=== PATIENT | male | born 1940 | race Caucasian/White ===

== ENCOUNTER → 2019-11-11 | Outpatient (CLI) | payer OTHER, BC | LOC: SJCVC 14:22 | DX: I48.91 Unspecified atrial fibrillation (principal); R94.31 Abnormal electrocardiogram [ECG] [EKG]; I25.810 Atherosclerosis of coronary artery bypass graft(s) without angina pectoris; I11.0 Hypertensive heart disease with heart failure; I50.32 Chronic diastolic (congestive) heart failure; E78.5 Hyperlipidemia, unspecified; I65.23 Occlusion and stenosis of bilateral carotid arteries; Z95.1 Presence of aortocoronary bypass graft; Z95.0 Presence of cardiac pacemaker; Z79.899 Other long term (current) drug therapy; Z87.891 Personal history of nicotine dependence ==

== ENCOUNTER → 2020-02-10 | Outpatient (CLI) | payer OTHER, BC | LOC: SJCVCIMAG 11:23 → SJCVC 11:23 | DX: I70.245 Atherosclerosis of native arteries of left leg with ulceration of other part of foot (principal); L97.521 Non-pressure chronic ulcer of other part of left foot limited to breakdown of skin; M79.604 Pain in right leg; I48.91 Unspecified atrial fibrillation; R94.31 Abnormal electrocardiogram [ECG] [EKG]; I11.0 Hypertensive heart disease with heart failure; I50.32 Chronic diastolic (congestive) heart failure; I48.11 Longstanding persistent atrial fibrillation; E78.5 Hyperlipidemia, unspecified; I25.810 Atherosclerosis of coronary artery bypass graft(s) without angina pectoris; I65.23 Occlusion and stenosis of bilateral carotid arteries; Z79.899 Other long term (current) drug therapy; Z87.891 Personal history of nicotine dependence; Z95.1 Presence of aortocoronary bypass graft ==

== ENCOUNTER → 2020-02-14 | Outpatient (CLI) | payer OTHER, BC ==
[~2020-02-14] MED LIST: COLACE CLEAR50 MG PO; DEMADEX20 MG PO; DILTIAZEM ER240 M2 PO; K-DUR 20 MEQ T20 MEQ PO; LOPRESSOR50 MG PO; NEURONTIN 300M300 M2 PO; NORCO 10-325 T1 EACH PO; OMEPRAZOLE 20 M20 M1 PO; VASOTEC20 MG PO; XARELTO20 MG PO; ZOCOR 10 MG TAB10 M1 PO
== END ==
LOC: SJCVC 13:54
DX: I73.9 Peripheral vascular disease, unspecified (principal); L97.919 Non-pressure chronic ulcer of unspecified part of right lower leg with unspecified severity; L97.929 Non-pressure chronic ulcer of unspecified part of left lower leg with unspecified severity; I48.11 Longstanding persistent atrial fibrillation; I15.9 Secondary hypertension, unspecified; E78.5 Hyperlipidemia, unspecified; Z95.1 Presence of aortocoronary bypass graft; Z82.49 Family history of ischemic heart disease and other diseases of the circulatory system; Z79.899 Other long term (current) drug therapy; Z87.891 Personal history of nicotine dependence

== ENCOUNTER → 2020-02-17 | Outpatient (CLI) | payer OTHER, BC ==
[~2020-02-17] VITALS: Ht 170.2 cm; Wt 82.1 kg
[2020-02-17 09:08] LABS: HEMOGLOBIN 13.2 gm/dL (14.0-18.0); MCH 31.3 pg (26.0-34.0); MCHC 32.9 g/dL (28.0-37.0); MCV 94.9 fL (80.0-100.0); RBC 4.22 mil/uL (4.50-6.00); RDW 14.9 % (10.5-14.5)
[2020-02-17 09:18] LABS: CREATININE 1.6 mg/dL (0.7-1.3); POTASSIUM 4.2 mmol/L (3.5-5.1)
[2020-02-17 09:19] VITALS: BP 114/61
== END | disposition home or self-care (01) ==
LOC: CATH 08:23
PROVIDERS: Nuclear Medicine Nuclear Cardiology
DX: I70.248 Atherosclerosis of native arteries of left leg with ulceration of other part of lower leg (principal); I70.213 Atherosclerosis of native arteries of extremities with intermittent claudication, bilateral legs; I70.1 Atherosclerosis of renal artery; I10 Essential (primary) hypertension; E78.5 Hyperlipidemia, unspecified; I48.91 Unspecified atrial fibrillation; K21.9 Gastro-esophageal reflux disease without esophagitis; Z98.890 Other specified postprocedural states; Z95.1 Presence of aortocoronary bypass graft; Z96.653 Presence of artificial knee joint, bilateral; Z96.643 Presence of artificial hip joint, bilateral; Z96.611 Presence of right artificial shoulder joint; Z87.891 Personal history of nicotine dependence; Z79.01 Long term (current) use of anticoagulants; Z79.899 Other long term (current) drug therapy

== ENCOUNTER → 2020-02-22 | Outpatient (CLI) | payer OTHER, BC | LOC: HYPER 08:22 | DX: L89.613 Pressure ulcer of right heel, stage 3 (principal); L89.893 Pressure ulcer of other site, stage 3; E78.5 Hyperlipidemia, unspecified; I25.10 Atherosclerotic heart disease of native coronary artery without angina pectoris; I10 Essential (primary) hypertension; I73.9 Peripheral vascular disease, unspecified; I48.91 Unspecified atrial fibrillation; K21.9 Gastro-esophageal reflux disease without esophagitis; Z87.891 Personal history of nicotine dependence; Z95.1 Presence of aortocoronary bypass graft; Z95.828 Presence of other vascular implants and grafts ==

== ENCOUNTER → 2020-03-07 | Outpatient (CLI) | payer OTHER, BC | LOC: HYPER 12:59 | DX: L89.613 Pressure ulcer of right heel, stage 3 (principal); L89.893 Pressure ulcer of other site, stage 3; L84 Corns and callosities; E78.5 Hyperlipidemia, unspecified; I10 Essential (primary) hypertension; I73.9 Peripheral vascular disease, unspecified; I48.91 Unspecified atrial fibrillation; I25.10 Atherosclerotic heart disease of native coronary artery without angina pectoris; K21.9 Gastro-esophageal reflux disease without esophagitis; Z87.891 Personal history of nicotine dependence; Z95.1 Presence of aortocoronary bypass graft; Z95.828 Presence of other vascular implants and grafts ==

== ENCOUNTER → 2020-03-21 | Outpatient (CLI) | payer OTHER, BC | LOC: HYPER 13:05 | PROVIDERS: ATTEND Emergency Medicine | DX: L89.613 Pressure ulcer of right heel, stage 3 (principal); L89.893 Pressure ulcer of other site, stage 3; L84 Corns and callosities; E78.5 Hyperlipidemia, unspecified; I25.10 Atherosclerotic heart disease of native coronary artery without angina pectoris; I10 Essential (primary) hypertension; I73.9 Peripheral vascular disease, unspecified; I48.91 Unspecified atrial fibrillation; K21.9 Gastro-esophageal reflux disease without esophagitis; Z87.891 Personal history of nicotine dependence; Z95.1 Presence of aortocoronary bypass graft; Z95.828 Presence of other vascular implants and grafts ==

== ENCOUNTER → 2020-04-04 | Outpatient (CLI) | payer OTHER, BC | LOC: HYPER 07:40 | PROVIDERS: ATTEND Emergency Medicine | DX: L89.613 Pressure ulcer of right heel, stage 3 (principal); L89.893 Pressure ulcer of other site, stage 3; S90.425D Blister (nonthermal), left lesser toe(s), subsequent encounter; E78.5 Hyperlipidemia, unspecified; I25.10 Atherosclerotic heart disease of native coronary artery without angina pectoris; I10 Essential (primary) hypertension; I73.9 Peripheral vascular disease, unspecified; I48.91 Unspecified atrial fibrillation; K21.9 Gastro-esophageal reflux disease without esophagitis; Z87.891 Personal history of nicotine dependence; Z95.1 Presence of aortocoronary bypass graft; Z95.828 Presence of other vascular implants and grafts; X58.XXXD Exposure to other specified factors, subsequent encounter ==

== ENCOUNTER → 2020-04-11 | Outpatient (CLI) | payer OTHER, BC | LOC: HYPER 10:59 | PROVIDERS: ATTEND Emergency Medicine Emergency Medical Services | DX: L89.613 Pressure ulcer of right heel, stage 3 (principal); L84 Corns and callosities; E78.5 Hyperlipidemia, unspecified; I25.10 Atherosclerotic heart disease of native coronary artery without angina pectoris; I10 Essential (primary) hypertension; I73.89 Other specified peripheral vascular diseases; I48.91 Unspecified atrial fibrillation; K21.9 Gastro-esophageal reflux disease without esophagitis; Z87.891 Personal history of nicotine dependence; Z95.1 Presence of aortocoronary bypass graft; Z95.828 Presence of other vascular implants and grafts ==

== ENCOUNTER → 2020-04-18 | Outpatient (CLI) | payer OTHER, BC | LOC: HYPER 14:22 | PROVIDERS: ATTEND Emergency Medicine | DX: L89.613 Pressure ulcer of right heel, stage 3 (principal); L84 Corns and callosities; E78.5 Hyperlipidemia, unspecified; I25.10 Atherosclerotic heart disease of native coronary artery without angina pectoris; I10 Essential (primary) hypertension; I73.89 Other specified peripheral vascular diseases; I48.91 Unspecified atrial fibrillation; K21.9 Gastro-esophageal reflux disease without esophagitis; Z87.891 Personal history of nicotine dependence; Z95.1 Presence of aortocoronary bypass graft; Z95.828 Presence of other vascular implants and grafts ==

== ENCOUNTER → 2020-04-25 | Outpatient (CLI) | payer OTHER, BC | LOC: HYPER 11:57 | PROVIDERS: ATTEND Emergency Medicine | DX: L89.613 Pressure ulcer of right heel, stage 3 (principal); L84 Corns and callosities; E78.5 Hyperlipidemia, unspecified; I25.10 Atherosclerotic heart disease of native coronary artery without angina pectoris; I10 Essential (primary) hypertension; I73.89 Other specified peripheral vascular diseases; I48.91 Unspecified atrial fibrillation; K21.9 Gastro-esophageal reflux disease without esophagitis; Z87.891 Personal history of nicotine dependence; Z95.1 Presence of aortocoronary bypass graft; Z95.828 Presence of other vascular implants and grafts ==

== ENCOUNTER → 2020-05-02 | Outpatient (CLI) | payer OTHER, BC | LOC: HYPER 10:21 | PROVIDERS: ATTEND Emergency Medicine | DX: L89.613 Pressure ulcer of right heel, stage 3 (principal); L89.893 Pressure ulcer of other site, stage 3; I25.10 Atherosclerotic heart disease of native coronary artery without angina pectoris; I73.89 Other specified peripheral vascular diseases; R60.0 Localized edema; K21.9 Gastro-esophageal reflux disease without esophagitis; E78.5 Hyperlipidemia, unspecified; I48.91 Unspecified atrial fibrillation; Z95.1 Presence of aortocoronary bypass graft; Z87.891 Personal history of nicotine dependence ==

== ENCOUNTER → 2020-05-16 | Outpatient (CLI) | payer OTHER, BC | LOC: HYPER 07:19 | PROVIDERS: ATTEND Emergency Medicine | DX: L89.613 Pressure ulcer of right heel, stage 3 (principal); L89.893 Pressure ulcer of other site, stage 3; I25.10 Atherosclerotic heart disease of native coronary artery without angina pectoris; I73.89 Other specified peripheral vascular diseases; R60.0 Localized edema; I10 Essential (primary) hypertension; K21.9 Gastro-esophageal reflux disease without esophagitis; E78.5 Hyperlipidemia, unspecified; I48.91 Unspecified atrial fibrillation; Z95.1 Presence of aortocoronary bypass graft; Z87.891 Personal history of nicotine dependence ==

== ENCOUNTER → 2020-05-30 | Outpatient (CLI) | payer OTHER, BC | LOC: HYPER 08:14 | PROVIDERS: ATTEND Emergency Medicine | DX: L89.613 Pressure ulcer of right heel, stage 3 (principal); L84 Corns and callosities; R60.0 Localized edema; E78.5 Hyperlipidemia, unspecified; I25.10 Atherosclerotic heart disease of native coronary artery without angina pectoris; I73.89 Other specified peripheral vascular diseases; I10 Essential (primary) hypertension; I48.91 Unspecified atrial fibrillation; K21.9 Gastro-esophageal reflux disease without esophagitis; Z87.891 Personal history of nicotine dependence; Z95.1 Presence of aortocoronary bypass graft; Z95.828 Presence of other vascular implants and grafts ==

== ENCOUNTER → 2020-06-12 | Outpatient (CLI) | payer OTHER, BC | LOC: SJCVCIMAG 12:41 | PROVIDERS: ATTEND Nuclear Medicine Nuclear Cardiology | DX: I65.23 Occlusion and stenosis of bilateral carotid arteries (principal); R94.31 Abnormal electrocardiogram [ECG] [EKG]; I73.9 Peripheral vascular disease, unspecified; I48.11 Longstanding persistent atrial fibrillation; I25.810 Atherosclerosis of coronary artery bypass graft(s) without angina pectoris; I11.0 Hypertensive heart disease with heart failure; I50.32 Chronic diastolic (congestive) heart failure; E78.00 Pure hypercholesterolemia, unspecified; Z95.1 Presence of aortocoronary bypass graft; Z95.820 Peripheral vascular angioplasty status with implants and grafts; Z79.899 Other long term (current) drug therapy; Z87.891 Personal history of nicotine dependence ==

== ENCOUNTER → 2020-06-20 | Outpatient (CLI) | payer OTHER, BC | LOC: HYPER 08:20 | PROVIDERS: ATTEND Emergency Medicine | DX: L89.613 Pressure ulcer of right heel, stage 3 (principal); L84 Corns and callosities; R60.0 Localized edema; E78.5 Hyperlipidemia, unspecified; I25.10 Atherosclerotic heart disease of native coronary artery without angina pectoris; I10 Essential (primary) hypertension; I73.89 Other specified peripheral vascular diseases; I48.91 Unspecified atrial fibrillation; K21.9 Gastro-esophageal reflux disease without esophagitis; Z87.891 Personal history of nicotine dependence; Z95.1 Presence of aortocoronary bypass graft; Z95.828 Presence of other vascular implants and grafts ==

== ENCOUNTER → 2020-09-05 | Outpatient (CLI) | payer OTHER, BC | LOC: SJCVC 10:58 | PROVIDERS: ATTEND Internal Medicine | DX: I25.10 Atherosclerotic heart disease of native coronary artery without angina pectoris (principal); R94.31 Abnormal electrocardiogram [ECG] [EKG]; I48.21 Permanent atrial fibrillation; I11.0 Hypertensive heart disease with heart failure; I50.32 Chronic diastolic (congestive) heart failure; E78.5 Hyperlipidemia, unspecified; I73.9 Peripheral vascular disease, unspecified; Z95.1 Presence of aortocoronary bypass graft; Z79.899 Other long term (current) drug therapy; Z87.891 Personal history of nicotine dependence ==

== ENCOUNTER → 2020-10-16 | Outpatient (CLI) | payer OTHER, BC | LOC: SJCVC 13:44 | PROVIDERS: ATTEND Internal Medicine | DX: R94.31 Abnormal electrocardiogram [ECG] [EKG] (principal); I25.10 Atherosclerotic heart disease of native coronary artery without angina pectoris; I11.0 Hypertensive heart disease with heart failure; I50.32 Chronic diastolic (congestive) heart failure; I48.21 Permanent atrial fibrillation; E78.5 Hyperlipidemia, unspecified; I73.9 Peripheral vascular disease, unspecified; Z95.1 Presence of aortocoronary bypass graft; Z87.891 Personal history of nicotine dependence; Z79.899 Other long term (current) drug therapy; Z88.0 Allergy status to penicillin; Z88.1 Allergy status to other antibiotic agents ==

== ENCOUNTER 2020-12-01 00:40 | Inpatient (IN) | payer OTHER, BC ==
[2020-12-01] VITALS (10 sets, daily range): BP systolic 97–120; BP diastolic 54–83
[~2020-12-01] VITALS: Ht 172.7 cm; Wt 89.9 kg
--- NOTE | ~2020-12-01 | EMS ---
[address] [address] EMS Patient Care Report Name: MINA TRINH Room #: REG JOSE Botello#: [id number] Admission: 12/01/20 Attend Phys: Discharge: Date of : 38 Report #: [id number] THIS REPORT FOR: //name// Report Transmitted: 12/01/2020 00:12 EMS Care Summary [facility] MED-ACT Incident [id number] @ 12/01/2020 00:02 Incident Location [address] [place] [address] Patient MINA TRINH Male, 80 Years 1940 Patient Address [address] [place] [address] Patient History Atrial Fibrillation, Patient Allergies Penicillin allergy,Levaquin, Patient Medications Atorvastatin, Gabapentin, Torsemide, Atrovent, Ondansetron, Metoprolol, Docusate Sodium, Hydrocodone, Acetaminophen, Chief Complaint A FIB Disposition Transported No Lights/[place] Dispatch Reason Heart Problems/AICD Transported To [facility] Narrative [id number] dispatched to a rehab hospital for a C1 heart problem. Pt was found laying in bed with staff present and S47 on scene. [facility] [address] [place] [address] EMS Patient Care Report Name: MINA TRINH Room #: REG JOSE Botello#: [id number] Admission: 12/01/20 Attend Phys: Discharge: Date of : 38 Report #: [id number] Staff stated that they called 911 because the pt was in AFIB. Pt currently has no complaints and has a hx of AFIB. Staff stated that they gave the pt his prescribed metoprolol at 2000 this evening. Since then the pt's heart rate has been in the 130's. Staff stated that they were unable to give the pt any more metoprolol. Pt denied any chest pain, difficulty breathing, N/V, dizziness or any other complaints at this time. Pt stated that he has had a persistent cough with positive phlegm production. Pt tested positive for COVID last September but stated that the never had any symptoms. Pt is currently in the rehab hospital after having a medication error in August last year. He stated that he lost all his muscle tone and is having to re learn how to walk. Pt [facility] through out transport and his condition did not change. Pt was transported non emergent to [facility] per his request. Initial Vitals @00:37P: 132,SpO2: 97, @00:27P: 137,SpO2: 96,CA Suspected: false @PTAP: 125,R: 14,BP: 112/75,Pain: 0/10,GCS: 15,SpO2: 95,Revised Trauma: 12,CA Suspected: false @00:38P: 124,R: 16,BP: 132/69,GCS: 15,SpO2: 96,Revised Trauma: 12,CA Suspected: false @00:25P: 127,R: 16,BP: 110/73,Pain: 0/10,GCS: 15,Temp: 98.7F,SpO2: 94,Revised Trauma: 12,CA Suspected: false Assessments @00:27MENTAL:Person Oriented,Place Oriented,Time Oriented,Event Oriented,SKIN:HEENT:Eyes: No Abnormalities,LUNG SOUNDS:ABDOMEN:PELVIS//GI:EXTREMITIES:Right Leg: Edema,Left Leg: Edema,Left Arm: Abnormal Pulse,PULSE:Radial: 2+ Normal,NEURO: Impression Cardiac arrhythmia/dysrhythmia Procedures @PTASurgical Mask on PatientResponse: Unchanged@00:2712-Lead ECGResponse: UnchangedSucceeded Timeline AERIAL TRAM OPERATOR,Surgical Mask on Patient,Response: Unchanged AERIAL TRAM OPERATOR,BP: 112/75 M,PULSE: 125,RR: 14 R,SPO2: 95 Ox,ETCO2: ,BG: ,PAIN: 0,GCS: 15, 00:01,Call Received 00:01,Psap Call 00:02,Dispatched 00:04,En Route 00:10,On Scene 00:12,At Patient [address] [address] EMS Patient Care Report Name: MINA TRINH Room #: REG [facility].#: [id number] Admission: 12/01/20 Attend Phys: Discharge: Date of : 38 Report #: [id number] 00:25,BP: 110/73 M,PULSE: 127,RR: 16 R,SPO2: 94 Ox,ETCO2: ,BG: ,PAIN: 0,GCS: 15, 00:27,12-Lead ECG,Response: UnchangedSucceeded, 00:27,BP: / M,PULSE: 137,RR: R,SPO2: 96 Ox,ETCO2: ,BG: ,PAIN: ,GCS: , 00:30,Depart Scene 00:37,At Destination 00:37,BP: / M,PULSE: 132,RR: R,SPO2: 97 Ox,ETCO2: ,BG: ,PAIN: ,GCS: , 00:38,BP: 132/69 M,PULSE: 124,RR: 16 R,SPO2: 96 Ox,ETCO2: ,BG: ,PAIN: ,GCS: 15, 01:01,Call Closed Disclaimer v1.1 Copyright 2020 [employer] This EMS Care Summary contains data elements from the applicable legal record (which may be displayed differently). It is designed to provide pertinent information for the following purposes: continuity of care, clinical quality, and state data reporting. The complete legal record is available to ED staff and administrators of the receiving hospital in [employer] Patient Tracker. All data is provided "as is."
[2020-12-01 01:32] LABS: ABSOLUTE NEUTROPHILS 3.8 thou/uL (1.4-8.2); BASOPHILS 0.9 % (0.0-2.0); EOSINOPHILS 1.6 % (0.0-3.0); HEMATOCRIT 32.3 % (42.0-52.0); HEMOGLOBIN 9.5 gm/dL (14.0-18.0); LYMPHOCYTES 20.2 % (24.0-44.0); MCH 24.4 pg (26.0-34.0); MCHC 29.3 g/dL (28.0-37.0); MCV 83.1 fL (80.0-100.0); MONOCYTES 14.2 % (1.0-8.0); PLATELET COUNT 120 thou/uL (150-400); POLYS 63.1 % (36.0-66.0); RBC 3.89 mil/uL (4.50-6.00); RDW 18.9 % (10.5-14.5)
[2020-12-01] MEDS ORDERED: ACETAMINOPHEN PO (01:36)
[2020-12-01 01:38] LABS: ANION GAP 6 mmol/L (7-16); BUN 77 mg/dL (7-18); CALCIUM 9.1 mg/dL (8.5-10.1); CHLORIDE 98 mmol/L (98-107); CO2 35 mmol/L (21-32); CREATININE 1.8 mg/dL (0.7-1.3); GLUCOSE 128 mg/dL (74-106); POTASSIUM 4.3 mmol/L (3.5-5.1); SODIUM 139 mmol/L (136-145)
[2020-12-01 01:38] LABS: URINE BILIRUBIN NEGATIVE (Negative); URINE BLOOD NEGATIVE (Negative); URINE CLARITY CLEAR; URINE COLOR YELLOW; URINE GLUCOSE-RANDOM* NEGATIVE (Negative); URINE KETONES NEGATIVE (Negative); URINE LEUKOCYTES-REFLEX NEGATIVE (Negative); URINE NITRITE-REFLEX NEGATIVE (Negative); URINE PROTEIN (DIPSTICK) NEGATIVE (Negative); URINE UROBILINOGEN 0.2 E.U./dl (0.2-1.0)
[2020-12-01] MEDS ORDERED: PROVENTIL HFA6.7 G1 INH (01:38)
[2020-12-01] MEDS ORDERED: LIPITOR10 MG PO (01:38)
[2020-12-01] MEDS ORDERED: BISACODYL10 MG RECTAL (01:39)
[2020-12-01] MEDS ORDERED: CORRECTOL5 M1 PO ×2 (01:40→01:42)
[2020-12-01] MEDS ORDERED: GUAFENESIN PO (01:44)
[2020-12-01] MEDS ORDERED: GUAIFENESIN-DM10 ML PO ×2 (01:47→02:05)
[2020-12-01 01:48] LABS: ALBUMIN 3.5 g/dL (3.4-5.0); MAGNESIUM 2.5 mg/dL (1.8-2.4); SGOT 23 U/L (15-37); SGPT 11 U/L (30-65); TOTAL BILIRUBIN 0.8 mg/dL (0.2-1.0); TOTAL PROTEIN 6.2 g/dL (6.4-8.2); TROPONIN-I <0.06 ng/mL (<0.06)
[2020-12-01] MEDS ORDERED: MUCUS RELIEF600 M1 PO (02:04)
[2020-12-01] MEDS ORDERED: HYDROCODONE-AP1 EA11 PO (02:05)
[2020-12-01] MEDS ORDERED: PROTONIX40 M2 PO (02:06)
[2020-12-01] MEDS ORDERED: POTASSIUM20 PO (02:07)
[2020-12-01] MEDS ORDERED: SALINE MIST44 ML NASAL (02:08)
[2020-12-01] MEDS ORDERED: XARELTO15 MG PO (02:08)
[2020-12-01] MEDS ORDERED: TAMSULOSIN HCL0.4 MG PO (02:09)
[2020-12-01] MEDS ORDERED: SALINE NASAL SP88 ML NASAL (02:09)
[2020-12-01] MEDS ORDERED: SSD CREAM 1% 5050 GM TOP (02:11)
[2020-12-01] MEDS ORDERED: ONDANSETRON HCL4 M3 PO (02:12)
[2020-12-01] MEDS ORDERED: DEMADEX20 MG PO (02:17)
--- NOTE | 2020-12-01 10:55 | EKG ---
[place] [address] [facility] [place] [address] ELECTROCARDIOGRAM REPORT Name: MINA TRINH Room #: 354-P ADM IN M.R.#: [id number] Admission: 12/01/20 Attend Phys: Bethany Espana Discharge: Date of : 38 Report #: [id number] [facility] ED Test Date: 2020-12-01 Test Time: 00:47:24 Pat Name: MINA TRINH Department: Room: 354 Gender: M Steam Box Hand: DIAN : 1940 Requested By: Alfredito Velez Order Number: [id number] MD: Tone Fuller Measurements Intervals [place] Rate: 134 P: [place]: QRS: 30 QRSD: 87 T: 219 QT: 283 QTc: 423 Interpretive Statements Atrial fibrillation Low voltage, extremity leads Nonspecific T abnormalities, lateral leads Compared to ECG 10/08/2002 06:56:21 Low QRS voltage now present T-wave abnormality now present Sinus rhythm no longer present Atrial premature complex(es) no longer present Electronically Signed On 12-01-2020 10:55:48 CONCRETE VIBRATOR OPERATOR by Tone Fuller [email or web address] <ELECTRONICALLY SIGNED> By: Tone Fuller MD 12/01/20 1055 0047 0047 Tone Fuller MD /EPI
--- NOTE | 2020-12-01 19:14 | NUR ---
PT ADMITTED FROM ER FOR A-FIB ABOUT 083OAM,PT IS A&OX3, CARDILOGY HAS SEEING THE PT, NEW ORDER RECEIVED, PT'S HR WAS CONTROL 70-90 BY 1840PM, RN RESTARTS DILTIAZEM IV DRIP 5MG/HR ABOUT 1855PM FOR HR 120-135, PT'S COVID IS POSITIVE FROM TODAY TEST, ID DR HAS CONSULTED.
--- NOTE | 2020-12-01 22:41 | NUR ---
PT ALERT AND ORIENTED X4. TACHY EARLIER ON MONITOR 120-130'S. CARDIZEM GTT STARTED ON DAY SHIFT AT 5MG/HR. INCREASED TO 10 MG /HR. HR DOWN TO 80S . TITRATED TO 5 MG/HR. METOPROLOL PO GIVEN. BP WNL. WILL CONTINUE TO MONITOR PT FOR CHANGES. CURRENTLY AFIB ON MONITOR. NO S/S DISRESS. SILVADENE APPLIED TO SACRAL WOUND. FOAM DRESSING INTACT. FEET ELEVATED ON PILLOW WILL ORDER HEEL PROTECTORS. NO SCDS DUE TO LE WOUNDS. TURNIING PT Q 2 HRS AND MORE FREQUENTLY DUE TO PT UNCOMFORTABLE. HYDROCODONE GIVEN FOR BACK PAIN. HE IS RESTING QUIETLY PRESENTLY.
[2020-12-02 02:16] VITALS: BP 104/60
[2020-12-02 03:39] VITALS: BP 101/63
--- NOTE | 2020-12-02 04:46 | NUR ---
Pt progressing slowly towards d/c goals.VSS AFEBRILE SATS WNL ON2LNC. BS DIMINSHED UNLABORED ON 2LNC. ALL WOUNDS PICTURED BY DAY SHIFT NS. RLE DRESSING INTACT . SILVADENE APPLIED TO SACRAL WOUND. FOAM DRESSING INTACT. LEFT SECOND TOE NELLI.
[2020-12-02 05:23] VITALS: BP 114/55
[2020-12-02 05:31] LABS: HEMATOCRIT 29.5 % (42.0-52.0); HEMOGLOBIN 8.7 gm/dL (14.0-18.0); MCH 24.6 pg (26.0-34.0); MCHC 29.6 g/dL (28.0-37.0); RBC 3.56 mil/uL (4.50-6.00); RDW 18.9 % (10.5-14.5); WBC 4.8 thou/uL (4.0-11.0)
[2020-12-02 06:07] LABS: ALBUMIN 3.3 g/dL (3.4-5.0); CALCIUM 8.9 mg/dL (8.5-10.1); CREATININE 1.8 mg/dL (0.7-1.3); MAGNESIUM 2.4 mg/dL (1.8-2.4); PHOSPHORUS 3.7 mg/dL (2.5-4.9); POTASSIUM 4.2 mmol/L (3.5-5.1); TOTAL BILIRUBIN 0.8 mg/dL (0.2-1.0); TOTAL PROTEIN 5.5 g/dL (6.4-8.2)
[2020-12-02 07:30] VITALS: BP 114/63
--- NOTE | 2020-12-02 12:02 | EKG ---
[address] [address] ELECTROCARDIOGRAM REPORT Name: MINA TRINH Room #: 354- ADM IN M.R.#: [id number] Admission: 12/01/20 Attend Phys: Bethany Espana Discharge: Date of : 38 Report #: [id number] [facility] ED Test Date: 2020-12-01 Test Time: 00:53:28 Pat Name: MINA TRINH Department: Room: 354 Gender: M Linux Unix Administrator: DIAN : 1940 Requested By: Bethany Espana Order Number: [id number] MD: Tone Fuller Measurements Intervals [place] Rate: 84 P: 45 PA: 163 QRS: 8 QRSD: 97 T: 20 QT: 384 QTc: 454 Interpretive Statements Sinus rhythm Compared to ECG 12/01/2020 00:47:24 Atrial fibrillation no longer present T-wave abnormality no longer present Electronically Signed On 12-02-2020 12:01:59 PICKER MACHINE OPERATOR by Tone Fuller [email or web address] <ELECTRONICALLY SIGNED> By: Tone Fuller MD 12/02/20 1201 0053 005 Tone Fuller MD /[place]
[2020-12-02 13:41] VITALS: BP 114/70
--- NOTE | 2020-12-02 15:36 | HC ---
[facility] [place] [address] [place] [address] CONSULTATION Name: MINA TRINH Room #: 354-P ADM IN M.R.#: [id number] Admission: 12/01/20 Attend Phys: Bethany Espana Discharge: Date of : 38 Report #: [id number] THIS REPORT FOR: cc: Karlie Deleon MD, Martha M. MD [place], Allen B. MD ~ DATE OF SERVICE: 12/02/2020 WOUND CARE CONSULTATION NOTE LOCATION: [facility]. REASON FOR CONSULTATION: Sacral pressure sore and skin tears of right leg in a patient admitted for atrial fibrillation and rapid ventricular response and peripheral vascular disease. He also has peripheral vascular disease. HISTORY OF PRESENT ILLNESS: The patient is an 80-year-old gentleman admitted to the Emergency Room with atrial fibrillation with rapid ventricular response, which is now being controlled. The patient has a history of atrial fibrillation with long-term anticoagulation. The patient suffered from COVID-19 infection with pneumonia in 09/2020. The patient was at [facility] and then to [facility]. The patient was admitted for control of atrial fibrillation with rapid ventricular response with a Cardizem drip and Cardiology consult. Wound care is consulted due to findings of sacral pressure sore and wounds of the legs. PAST MEDICAL HISTORY: COVID-19 infection and pneumonia in September, atrial fibrillation, rapid ventricular response, congestive heart failure, chronic kidney disease stage 3, peripheral vascular disease. PAST SURGICAL HISTORY: Ear surgery, vascular stent to left lower extremity, bilateral hip replacement, bilateral knee replacement, coronary artery bypass grafting, COVID-19 in September. ALLERGIES: LEVOFLOXACIN AND PENICILLINS. LABORATORY DATA: Albumin 3.3 and 3.5. MEDICATIONS: See chart. PHYSICAL EXAMINATION: GENERAL: Shows a chronically ill-appearing gentleman with some minor scattered ecchymoses of the skin. He is conversant. He appears immobile. HEENT: Mucous membranes are moist. NECK: Supple. [facility] [address] [place] [address] CONSULTATION Name: MINA TRINH Room #: 354-P [facility] IN M.R.#: [id number] Admission: 12/01/20 Attend Phys: Bethany Espana Discharge: Date of : 38 Report #: [id number] ABDOMEN: Soft. EXTREMITIES: Examination of the patient's back shows small stage 3 pressure sore in the area of the coccyx measuring 2 mm x 3 mm, which is superficial. This was treated with Silvadene and foam border. Examination of the lower extremities show some evidence of resolving edema. There are some minor superficial skin tears of the right lower extremity, which may have been the blisters. There is a small discolored area of the left second toe with no open wound. IMPRESSION: 1. Atrial fibrillation with rapid ventricular response, admitted for Cardiology control. 2. Immobility. 3. Mild protein-calorie malnutrition. 4. Sacral stage 3 pressure ulcer, very small. Silvadene and Optifoam border. 5. Chronic kidney disease stage 3. 6. Congestive heart failure. 7. Peripheral vascular disease of lower extremities with small ulcerations of right leg. 8. Skin tears of the right leg. Silvadene, Xeroform, and Kerlix wrap to these areas. 9. Coronary artery disease. PLAN: Wound care team will follow this patient for his small minor stage 3 sacral pressure sore and wounds of his lower extremities. Wounds of his lower extremities are minor and further vascular evaluation should not be necessary at this time. <ELECTRONICALLY SIGNED> By: Rayo Linder MD 12/02/20 1536 1450 1533 Rayo Linder MD /nt
--- NOTE | 2020-12-02 16:05 | NUR ---
RN ASSUMED PT'S CARE AT 0700AM, PT IS A&OX3, PT IS ON O2 2L/MIN/NC, PT 'S HR HAS CONTROLLED AT 80-90 BY DILTIAZEM IV DRIP AT 5MG/HR, PT'S VS ARE STABLE, PT DENIES SOB, WOUND DR HAS SEEING THE PT, PT'S WOUND CARE HAS DONE, PT DENIES PAIN AT THIS TIME.PT'S COVID ISOLATION WAS DC AT 12/01/20.
[2020-12-02 19:33] VITALS: BP 118/64
--- NOTE | 2020-12-03 00:46 | NUR ---
PT ALERT X4 BUT FORGETFUL AT TIMES. VSS AFEBRILE C/O COUGH. COUGH MED GIVEN. PT RESPOSITIONED. SIVADENE APPLIED TO SACRAL WOUND. ALL DRESSINGS CLEAN DRY AND INTACT. BED DOWN CALL LIGHT IN REACH. N=BWED ALARM IS IN. HEEL PROTECTORS ARE ON.
[2020-12-03 03:51] VITALS: BP 110/74
[2020-12-03 07:23] VITALS: BP 110/61
[2020-12-03 11:04] VITALS: BP 103/64
--- NOTE | 2020-12-03 12:14 | 2DMMODE ---
[facility] [place] [address] 2 D/M-MODE ECHOCARDIOGRAM Name: GAYATHRIMINA Ng Room #: 354-P ADM IN M.R.#: [id number] Admission: 12/01/20 Attend Phys: Bethany Espana Discharge: Date of : 38 Report #: [id number] THIS REPORT FOR: cc: Karlie Deleon MD, Martha M. MD Lammoglia, Francisco J. MD ~ APPROVED REPORT Study performed: 12/03/2020 08:27:49 EXAM: Comprehensive 2D, Doppler, and color-flow Echocardiogram Patient Location: Bedside Room #: 354 Status: routine BSA: 2.03 HR: 104 bpm BP: 110/61 mmHg Rhythm: Atrial Fibrillation Other Information Study Quality: Adequate Indications Afib, diastolic heart failure. Hx: CABG, stent, HTN, HLP, PVD. 2D Dimensions RVDd: 42.65 mm IVSd: 8.97 (7-11mm) LVOT Diam: 22.63 (18-24mm) LVDd: 45.83 mm PWd: 10.05 (7-11mm) Ascending Ao: 29.53 (22-36mm) LVDs: 33.60 (25-40mm) Left Atrium: 46.90 (27-40mm) Aortic Root: 33.81 mm Volumes Left Atrial Volume (Systole) Single Plane 4CH: 52.97 mL Single Plane 2CH: 62.56 mL LA ESV Index: 31.00 mL/m2 Aortic Valve AoV Peak Ferdinand.: 0.96 m/s AO Peak Gr.: 3.69 mmHg LVOT Max P.35 mmHg LVOT Max V: 0.58 m/s [facility] [address] [place] [address] 2 D/M-MODE ECHOCARDIOGRAM Name: GAYATHRIMINA Hernandez Room #: 354-P [facility] IN ..#: [id number] Admission: 12/01/20 Attend Phys: Bethany Erwin Discharge: Date of : 38 Report #: [id number] Vmax: 2.43 cm2 Mitral Valve MV Decel. Time: 204.15 ms MV E Max Ferdinand.: 0.93 m/s Pulmonary Valve PV Peak Ferdinand.: 0.83 m/s PV Peak Gr.: 2.73 mmHg Tricuspid Valve TR Peak Ferdinand.: 2.53 m/s TR Peak Gr.: 26.00 mmHg Left Ventricle The left ventricle is normal size. There is normal left ventricular wall thickness. Left ventricular systolic function is normal. LVEF is 55%. This study is not technically sufficient to allow evaluation of the LV diastolic function due to atrial fibrillation. Right Ventricle Right ventricle is at the upper limits of normal. The right ventricular systolic function is normal. Atria Left atrium is mildly dilated. Right atrium is at the upper limits of normal. Aortic Valve The aortic valve is normal in structure; minimally calcified. No aortic regurgitation is present. There is no aortic valvular stenosis. Mitral Valve The mitral valve is normal in structure. Mild mitral annular calcification. Mild mitral regurgitation. No evidence of mitral valve stenosis. Tricuspid Valve The tricuspid valve is normal in structure. Moderate tricuspid regurgitation. Estimated PAP is 26mmHg plus the right atrial pressure. Pulmonic Valve Pulmonic valve is not well visualized. Mild pulmonic regurgitation. [facility] [place] [address] 2 D/M-MODE ECHOCARDIOGRAM Name: MINA TRINH Room #: 354-P ADM IN M.R.#: [id number] Admission: 12/01/20 Attend Phys: Bethany Erwin Discharge: Date of : 38 Report #: [id number] Great Vessels The aortic root is normal in size. The ascending aorta is normal in size. IVC is not well visualized. Pericardium There is no pericardial effusion. Left pleural effusion noted. <Conclusion> The left ventricle is normal size. LVEF is 55%. The right ventricular systolic function is normal. The aortic valve is normal in structure; minimally calcified. The mitral valve is normal in structure. Mild mitral annular calcification. Mild mitral regurgitation. The tricuspid valve is normal in structure. Moderate tricuspid regurgitation. Estimated PAP is 26mmHg plus the right atrial pressure. Pulmonic valve is not well visualized. Mild pulmonic regurgitation. There is no pericardial effusion. Left pleural effusion noted. <ELECTRONICALLY SIGNED> By: Walter Paredes MD 12/03/20 1214 13 13 Walter Paredes MD /INF
--- NOTE | 2020-12-03 13:45 | NUR ---
Assess due to notification of pt with BLE wound (PVD) and sacral wound stage III. Hx CKD, cirhosis, COVID, and admit with CHF exacerbation. Pt reports usual wt 185 lb, current wt up to 201 lb and requires lasix. States appetite is "pretty good", and requesting some ensure supplements which he drinks protein drinks at home-will order. Physician has indicated protein calorie malnutrition: RD will defer, not enough information available to assess at this time. Continue to follow per protocol.
--- NOTE | 2020-12-03 14:10 | NUR ---
INITIAL ASSESSMENT: ELIU reviewed chart and spoke with nursing and attending physician. [facility] due to Afib/CHF. Pt placed in Enhanced Isolation due to hx of COVID. Pt tested positive in September of 2020. Enhanced Isolation precautions have been discontinued. Pt is on 2L of O2 qand on IV lasix. Pt is on cardizem gtt. Discharge back to [facility] is anticipated for tomorrow. ELIU spoke with pt via phone. Introduced role of SW. Pt is alert/orientated x 4. Pt reports he has been at [facility] for about a week. Pt normally lives at home with his . Pt has a walker and crutches to use at home. No stairs to navigate at home. Pt has used [employer] in the past. Pt's PCP is Dr. Ramses Taylor in [place]. Plan is for pt to return to [facility] when medically stable. Pt requested SW contact his to provide update. ELIU spoke with pt's , Michelle, via phone. Michelle confirms discharge plan. ELIU faxed clinical info to [facility] and notified liaison of pt's anticipated discharge date. [facility] is able to accept pt back tomorrow. ELIU is following to assist as needed with discharge planning.
[2020-12-03 15:19] VITALS: BP 120/70
[2020-12-03 15:25] LABS: ABSOLUTE NEUTROPHILS 3.9 thou/uL (1.4-8.2); BASOPHILS 0.4 % (0.0-2.0); EOSINOPHILS 1.6 % (0.0-3.0); HEMATOCRIT 30.5 % (42.0-52.0); LYMPHOCYTES 14.3 % (24.0-44.0); MCH 24.5 pg (26.0-34.0); MCHC 29.6 g/dL (28.0-37.0); MCV 82.9 fL (80.0-100.0); MONOCYTES 12.9 % (1.0-8.0); PLATELET COUNT 134 thou/uL (150-400); POLYS 70.8 % (36.0-66.0); RBC 3.68 mil/uL (4.50-6.00); RDW 18.8 % (10.5-14.5); WBC 5.5 thou/uL (4.0-11.0)
[2020-12-03 15:30] LABS: CALCIUM 8.7 mg/dL (8.5-10.1); CREATININE 1.6 mg/dL (0.7-1.3); POTASSIUM 3.6 mmol/L (3.5-5.1)
--- NOTE | 2020-12-03 16:41 | HC ---
[facility] [place] [place] [address] CONSULTATION Name: MINA TRINH Room #: 354-P ADM IN M.R.#: [id number] Admission: 12/01/20 Attend Phys: Bethany Espana Discharge: Date of : 38 Report #: [id number] THIS REPORT FOR: cc: Karlie Deleon MD, Martha M. MD Geha, Daniel J. MD ~ DATE OF SERVICE: 12/01/2020 INFECTIOUS DISEASE CONSULTATION REASON FOR CONSULTATION: I was asked to evaluate concerning COVID-19 and congestive heart failure. HISTORY OF PRESENT ILLNESS: The patient is an 80-year-old who presents to the Emergency Room from [facility] with atrial fibrillation, rapid ventricular response. It is noted he was COVID positive from his previous longterm in mid September. At that time, he was asymptomatic. This was done as a screening procedure. Otherwise, he had been doing reasonably well and was moved to [facility] for further rehabilitation efforts. He did note dyspnea on exertion. He has had some congestive heart failure symptoms in the past. Has underlying hypertension and chronic kidney disease. He has been placed on a Cardizem drip and given IV Lasix. Overall, feels better since admission. He denies any headache, loss of taste or smell, cough or sputum production, nausea, vomiting or diarrhea. REVIEW OF SYSTEMS: A 14-point review of system was negative other than what has been described above. ALLERGIES: LEVOFLOXACIN AND PENICILLIN. MEDICATIONS: As noted on his MAR, which were reviewed. PAST MEDICAL HISTORY: Atrial fibrillation, congestive heart failure, hypertension, hyperlipidemia, scoliosis, pneumonia, peripheral artery disease, chronic kidney disease. PAST SURGICAL HISTORY: Left ear surgery, stents in the left lower extremity, bilateral total hip arthroplasties, bilateral total knee arthroplasties, coronary artery bypass grafting, right shoulder repair. FAMILY HISTORY: Diabetes and coronary artery disease. SOCIAL HISTORY: He is a past smoker, no significant alcohol intake. PHYSICAL EXAMINATION: [facility] [address] [place] [address] CONSULTATION Name: MINA TRINH Room #: 354-P [facility] IN ..#: [id number] Admission: 12/01/20 Attend Phys: Bethany Espana Discharge: Date of : 38 Report #: [id number] VITAL SIGNS: He is afebrile and hemodynamically stable. He is on oxygen per nasal cannula. SKIN: Without rash or decubitus. No palpable adenopathy. EYES: Without scleral icterus. MOUTH: Without mucositis. NECK: Supple. LUNGS: Decreased breath sounds bilaterally, no consolidation. HEART: Irregular, without appreciable murmur, gallop or rub. ABDOMEN: Soft and nontender. Liver edge was palpable. He had a mass in the right lower quadrant abdominal wall, which was nontender. EXTREMITIES: Without clubbing or cyanosis. He does have 1+ edema in the lower extremities. NEUROLOGIC: Cranial nerves intact. Strength in the upper and lower extremities within normal limits. SKIN: Shallow ulcerations to his lower extremities and his coccyx. LABORATORY STUDIES: Reviewed. MICROBIOLOGY: Reviewed. Chest x-ray and CT scan of the chest reviewed. IMPRESSION: 1. COVID-19 positive by PCR, negative by antigen. I suspect this is a positive test from his previous infection in September. No evidence of active disease at this point. He has congestive heart failure and atrial fibrillation as his underlying diagnosis. 2. Chronic kidney disease. 3. Hypertension. 4. Peripheral vascular disease. 5. Bilateral lower extremity wounds and coccyx wound. RECOMMENDATION: Would remove from COVID isolation. Continue diuresis. May need thoracentesis to improve respiratory status. <ELECTRONICALLY SIGNED> By: Emanuel Baez MD 12/03/20 1641 49 04 Emanuel Baez MD /nt
--- NOTE | 2020-12-03 18:33 | NUR ---
RN ASSUMED PT'S CARE AT 0700AM, PT IS A&OX3, PT IS ON O2 2L/MIN/NC TO KEEP 71ASD30-23%, PT IS CONTINUING DILTIAZEM 5MG/HR TO CONTROL HR AT 80-99, PT'S VS ARE STABLE, PT'S BLE WOUND AND COCCYX WOUND CARE HAS DONE, PT HAS WORKED WITH PT/OT TODAY, PT DENIES PAIN AND SOB BY THIS TIME.
[2020-12-03 20:18] VITALS: BP 113/68
[2020-12-03 23:31] VITALS: BP 116/70
[2020-12-04] VITALS (8 sets, daily range): BP systolic 94–111; BP diastolic 51–70
[2020-12-04 05:38] LABS: HEMATOCRIT 30.5 % (42.0-52.0); HEMOGLOBIN 9.2 gm/dL (14.0-18.0); MCH 24.6 pg (26.0-34.0); MCHC 30.1 g/dL (28.0-37.0); MCV 81.8 fL (80.0-100.0); RBC 3.73 mil/uL (4.50-6.00); RDW 18.1 % (10.5-14.5); WBC 4.8 thou/uL (4.0-11.0)
[2020-12-04 05:44] LABS: CALCIUM 8.9 mg/dL (8.5-10.1); CREATININE 1.7 mg/dL (0.7-1.3); POTASSIUM 3.5 mmol/L (3.5-5.1)
--- NOTE | 2020-12-04 06:23 | NUR ---
PT ALERT AND ORIENTED X4. CALLS OUT TO BE READJUSTED FREQUENTLY. C/O BACK PAIN. MEDICATED FOR PAIN AND COUGH.PT SLEPT BETTER AFTER BEING MEDICATED. WOUND CARE DONE ORDERED TO SACRAL WOUND. BOTH FEET ARE IN HEEL PROTECTORS. RLE DRESSING INTACT. ИВАН BROCK DC'D THIS AM AROUND O410. PULSE WAS 70'S -80S. LASIX GIVEN ORDERED. VOIDING CLEAR YELLOW URINE IN SMALL AMTS, SEE I&O. BED DOWN CALL LIGHT IN REAC. BED ALARM ON. PROGRESSING SLOWLY TOWARDS D/C GOALS.
--- NOTE | 2020-12-04 13:25 | NUR ---
ELIU reviewed chart and spoke with nursing and attending physician. Pt is progressing towards goals for discharge back to [facility]. Discharge is anticipated for tomorrow. Pt remains on IV lasix. ELIU updated [facility] liaison, who confirmed they are able to accept pt back tomorrow. ELIU faxed clinical/therapy updates to [facility]. ELIU placed call to pt's room. No answer. ELIU is following to assist as needed with discharge planning.
--- NOTE | 2020-12-04 16:32 | NUR ---
CARE ASSUMED AT 0700, ALERT AND ORIENTED X3, FORGETFUL AT TIMES. DENIES ANY PAIN, ANSUEA AND VOMITTING. PT IS ON 2L OF OXYGEN, NO SIGNS OF DISTRESS. HR IN THE LOW 100'S, ELEVATED WITH ACTIVITY, A -FIB. PT USES URINAL/BED BEDPAN. PT WAS UP WITH PT, HR JUMPD UP IN THE 140'S, PT STATED FEELING DIZZY, SETTLED BACK IN BED, VITALS TAKEN, WNL. USES CALL LIGHT APPROPRIATLY, FALL PRECAUTIONS IN PLACE. WILL CONTINUE TO MONITOR.
[2020-12-05 01:52] VITALS: BP 111/58
[2020-12-05 05:41] VITALS: BP 97/57
[2020-12-05 06:08] LABS: CALCIUM 9.1 mg/dL (8.5-10.1); CREATININE 1.4 mg/dL (0.7-1.3); POTASSIUM 3.1 mmol/L (3.5-5.1)
[2020-12-05 07:39] VITALS: BP 109/65
[2020-12-05 11:13] VITALS: BP 112/66
--- NOTE | 2020-12-05 14:48 | NUR ---
ELIU reviewed chart and spoke with nursing and attending physician. Cardizem gtt discontinued earlier today. Pt remains on IV lasix. Pt is on 1-2L of O2. Pt not ready to [facility] to [facility]. ELIU updated [facility] liaison. ELIU placed call to pt's room. No answer. ELIU is following to assist as needed with discharge planning.
[2020-12-05 15:52] VITALS: BP 114/71
--- NOTE | 2020-12-05 17:36 | NUR ---
ASSUMED PATIENT CARE AT 0700. A/O X4. TITRATED TO RA TOLERATED WELL.DENIES PAIN. NO SOB NOTED. SLOWLY TOWARDS POC GOALS.
[2020-12-05 20:03] VITALS: BP 113/58
[2020-12-06 04:03] VITALS: BP 90/70
--- NOTE | 2020-12-06 05:40 | NUR ---
PT MAKING SLOW PROGRESS TOWARDS GOALS. PT INITIAL O2 SAT 93% ON ROOM AIR JUST PRIOR TO ASSESSMENT. NOTED PT MILDY SOA WHEN SPEAKING. DID PLACE O2 AT 2L PER NC FOR PT COMFORT. HE DID STATE THAT HE FELT LESS OUT OF BREATH WHEN TALKING AFTER THE PLACEMENT OF OXYGEN.
[2020-12-06 05:47] LABS: HEMOGLOBIN 9.1 gm/dL (14.0-18.0); MCH 24.7 pg (26.0-34.0); MCHC 30.1 g/dL (28.0-37.0); MCV 81.9 fL (80.0-100.0); RBC 3.67 mil/uL (4.50-6.00); RDW 18.3 % (10.5-14.5); WBC 5.1 thou/uL (4.0-11.0)
[2020-12-06 06:05] LABS: CALCIUM 9.2 mg/dL (8.5-10.1); CREATININE 1.4 mg/dL (0.7-1.3); POTASSIUM 3.5 mmol/L (3.5-5.1)
[2020-12-06 08:02] VITALS: BP 114/63
[2020-12-06 10:18] VITALS: BP 129/49
--- NOTE | 2020-12-06 10:43 | NUR ---
DISCHARGE NOTE: ELIU reviewed chart and spoke with nursing and attending physician. Pt is medically stable to discharge back to [facility] today. ELIU faxed updated clinical/therapy notes to [facility] for review. Confirmed with liasion that they are able to accept pt today. Wheelchair van transportation scheduled for 1500 per facility's arrangements. ELIU placed call to pt's room. No answer. ELIU spoke with pt's , Michelle, via phone to provide update and notify of discharge. Pt's is agreeable [facility] discharge plan. ELIU updated pt's nurse and provided number for report. ELIU updated attending physician with transportation time and requested discharge orders/summary to be completed. Chart copy requested. ELIU is following to finalize discharge.
[2020-12-06] MEDS ORDERED: METOPROLOL TART25 MG PO (11:20)
[2020-12-06] MEDS ORDERED: METOLAZONE 2.52.5 MG PO (11:21)
[2020-12-06] MEDS ORDERED: LASIX 40 MG TAB40 MG PO (11:22)
[2020-12-06] MEDS ORDERED: POTASSIUM20 PO (11:23)
[2020-12-06 11:49] VITALS: BP 117/54
--- NOTE | 2020-12-06 15:22 | NUR ---
ASSUMED PATIENT CARE AT 0700. A/O X4. GENERLIZED WEAKNESS. DC TO [facility].
== END 2020-12-06 15:24 | DRG 291 ==
LOC: ER 00:40 → 3W 03:31 → EROBS 03:31 → 3W 07:19
PROVIDERS: Emergency Medicine; Hospitalist; Internal Medicine; Nurse Practitioner Family; ADMIT Hospitalist; ATTEND Hospitalist
DX: I13.0 Hypertensive heart and chronic kidney disease with heart failure and stage 1 through stage 4 chronic kidney disease, or unspecified chronic kidney disease (principal); U07.1 COVID-19; L89.153 Pressure ulcer of sacral region, stage 3; R65.11 Systemic inflammatory response syndrome (SIRS) of non-infectious origin with acute organ dysfunction; I50.33 Acute on chronic diastolic (congestive) heart failure; E44.1 Mild protein-calorie malnutrition; I48.21 Permanent atrial fibrillation; R18.8 Other ascites; S81.802A Unspecified open wound, left lower leg, initial encounter; S81.801A Unspecified open wound, right lower leg, initial encounter; S31.000A Unspecified open wound of lower back and pelvis without penetration into retroperitoneum, initial encounter; I25.10 Atherosclerotic heart disease of native coronary artery without angina pectoris; K74.60 Unspecified cirrhosis of liver; E78.5 Hyperlipidemia, unspecified; Z96.611 Presence of right artificial shoulder joint; Z96.653 Presence of artificial knee joint, bilateral; Z96.643 Presence of artificial hip joint, bilateral; I73.9 Peripheral vascular disease, unspecified; N18.30 Chronic kidney disease, stage 3 unspecified; S81.811A Laceration without foreign body, right lower leg, initial encounter; X58.XXXA Exposure to other specified factors, initial encounter; Y93.89 Activity, other specified; Y92.89 Other specified places as the place of occurrence of the external cause; Y99.8 Other external cause status; Z87.891 Personal history of nicotine dependence; Z83.3 Family history of diabetes mellitus; Z82.49 Family history of ischemic heart disease and other diseases of the circulatory system; Z95.820 Peripheral vascular angioplasty status with implants and grafts; Z95.1 Presence of aortocoronary bypass graft; Z87.01 Personal history of pneumonia (recurrent); Z88.1 Allergy status to other antibiotic agents; Z88.0 Allergy status to penicillin; Z68.30 Body mass index [BMI] 30.0-30.9, adult; Z79.899 Other long term (current) drug therapy
CPT/HCPCS: 10879